=== PATIENT | male | born 1935 | race Caucasian/White ===

== ENCOUNTER → 2017-04-27 | Outpatient (CLI) | payer OTHER ==
[~2017-04-27] MED LIST: ACETAMINOPHEN500 MG PO; ASCORBIC ACID500 M3 GT; ASPIRIN81 M2 GT; ATROPINE 1100 DROP/5 PO; AUGMENTIN875 MG GT; BENEPROTEIN227 GM GT; BISAC-EVAC10 MG PR; DUONEB 2.5-0.5 M3 ML AEROSOL; ENDOCET 5-3251 EACH PO; GLIPIZIDE XL10 MG PO; GLIPIZIDE10 MG GT; GLUCAGEN1 MG IM; GLUCOPHAGE500 MG GT; GLUCOPHAGE500 MG PO; GUAIFENESI100 MG/5 M GT; HUMALOG100 UNIT/1 SC; LANSOPRAZOLE 3MG/ML GT; LANSOPRAZOLE30 MG PO; LEVEMIR FL100 UNIT/1 SC; LEVEMIR100 UNIT/2 SC; LEVOTHYROXINE50 MCG GT; LOSARTAN POTASS50 MG GT; METFORMIN HCL500 MG GT; METFORMIN HCL500 MG PO; METOCLOPRAM5 MG/5 ML GT; METRONIDAZOLE500 MG PO; MIRALAX17 GM GT; MOTRIN400 MG PO; NOVOLOG PE100 UNITS/ SC; NYSTATIN100000 UN1 PO; PRAVACHOL40 MG GT; PREDNISOLO15 MG/5 M1 GT; PREDNISONE1 MG/ML GT; PREVACID SOLUTA30 MG GT; PROTONIX IV40 MG IV; PROVENTIL,2.5 MG/0.5 AEROSOL; Prelone,Orapred PO; SAW PALMETTO450 MG PO; SENNA8.6 MG GT; SIMVASTATIN20 MG PO; SOLU-MEDRO40 MG/1 ML IV; TRANSDERM-SCO1 PATCH TD
== END | disposition home or self-care (01) ==
LOC: AMB 08:30
PROC: 0D20XUZ Change Feeding Device in Upper Intestinal Tract, External Approach (ICD-10-PCS; principal; 2017-04-27)
DX: K94.23 Gastrostomy malfunction (principal); I69.891 Dysphagia following other cerebrovascular disease; I10 Essential (primary) hypertension; E11.9 Type 2 diabetes mellitus without complications; E03.9 Hypothyroidism, unspecified; E78.5 Hyperlipidemia, unspecified; K21.9 Gastro-esophageal reflux disease without esophagitis; K59.00 Constipation, unspecified
CPT/HCPCS: 99212; B4087

== ENCOUNTER 2017-12-20 04:51 | Emergency (ER) | payer OTHER, MEDICARE ==
[~2017-12-20] VITALS: Ht 182.9 cm; Wt 100.0 kg
[2017-12-20 07:47] VITALS: BP 122/84
== END 2017-12-20 07:49 | disposition home or self-care (01) ==
LOC: EME → EDBD 04:51 → EME 07:49
PROC: 0D20XUZ Change Feeding Device in Upper Intestinal Tract, External Approach (ICD-10-PCS; principal; 2017-12-20)
DX: Z43.1 Encounter for attention to gastrostomy (principal); E11.9 Type 2 diabetes mellitus without complications; Z79.84 Long term (current) use of oral hypoglycemic drugs; J44.9 Chronic obstructive pulmonary disease, unspecified; I10 Essential (primary) hypertension; R56.9 Unspecified convulsions; E03.9 Hypothyroidism, unspecified
CPT/HCPCS: 74018; 99281; 99284

== ENCOUNTER 2018-01-30 18:49 | Inpatient (IN) | payer OTHER ==
[~2018-01-30] VITALS: Ht 182.9 cm; Wt 87.0 kg
[2018-01-30 20:15] LABS: BASOPHIL (%) 0.2 % (0-1); EOSINOPHIL (%) 0.1 % (0-5); HEMATOCRIT 39.8 % (38.0-50.0); HEMOGLOBIN 12.8 G/DL (12.5-16.6); IMMATURE GRANULOCYTE (%) 0.5 % (0.0-0.7); LYMPHOCYTE (%) 2.3 % (15-42); LYMPHOCYTE COUNT 0.3 K/uL (1.0-2.8); MCH 30.8 PG (29.0-34.0); MCHC 32.2 G/DL (30.0-36.0); MCV 95.9 FL (86-99); MONOCYTE (%) 1.3 % (3-12); MONOCYTE COUNT 0.2 K/uL (0-0.8); NEUTROPHIL (%) 95.6 % (45-76); NEUTROPHIL COUNT 11.5 K/uL (1.8-6.4); PLATELET COUNT 289 K/uL (156-360); RBC DIS.WIDTH-CV 14.8 % (11.8-14.6); RED BLOOD COUNT 4.15 M/uL (4.00-5.50); WHITE BLOOD COUNT 12.1 K/uL (4.1-10.2)
[2018-01-30 20:37] LABS: ALBUMIN 3.8 g/dL (3.2-4.8); CHLORIDE 96 mEq/L (99-109); POTASSIUM 5.3 mEq/L (3.7-5.4); SODIUM 134 mEq/L (136-147)
[2018-01-30 20:39] LABS: GLUCOSE 373 mg/dL (70-99); TOTAL PROTEIN 7.7 g/dL (6.4-8.3)
[2018-01-30 20:41] LABS: TOTAL BILIRUBIN 0.9 mg/dL (0.0-1.0)
[2018-01-30 20:42] LABS: TROP-I INTERPRETATION NEGATIVE; TROPONIN-I 0.01 ng/mL (0.0-0.30)
[2018-01-30 20:43] LABS: ALKALINE PHOSPHATASE 144 IU/L (3-129); CREATININE 1.5 mg/dL (0.6-1.3); GFR ESTIMATE (CALCULATED) 48 mL/min/ (58.99-99999)
[2018-01-30 20:44] LABS: UREA NITROGEN (BUN) 45 mg/dL (9-23)
[2018-01-30 20:45] LABS: AST (GOT) 22 IU/L (2-34)
[2018-01-30 20:46] LABS: ALT (GPT) 19 IU/L (3-49)
[2018-01-30 22:02] LABS: BASE EXCESS 1.9 mEq/L (-3 to +3); BICARBONATE 26.6 mEq/L (22-26); CARBOXY HGB 3.3 % (0-5); COMMENTS - BLOOD GASES C+A+; DEVICE NC; METHEMOGLOBIN 1.1 % (0-1.5); O2 FLOW 4 L/MIN; PCO2 41 mm Hg (35-45); PO2 57 mm Hg (80-100); SITE LR; TOTAL RESP RATE 22 resp/min; pH 7.42 (7.35-7.45)
[2018-01-30] MEDS ORDERED: GLIPIZIDE5 MG PO (22:37)
[2018-01-31] MEDS ORDERED: NORVASC5 MG GT (01:36)
[2018-01-31] MEDS ORDERED: GLUCERNA 1.5 C237 ML PO (01:36)
[2018-01-31] MEDS ORDERED: PREDNISONE20 MG GT (01:40)
[2018-01-31] MEDS ORDERED: AMOX TR-K CLV1 EAC3 GT (01:47)
[2018-01-31] MEDS ORDERED: METFORMIN HCL500 MG GT (01:51)
[2018-01-31] MEDS ORDERED: NUTRISOURCE FI1 EACH GT (01:53)
[2018-01-31] MEDS ORDERED: ZANTAC15 MG/ML GT (01:54)
[2018-01-31] MEDS ORDERED: DUONEB 2.5-0.5 M3 ML AEROSOL ×2 (01:58→01:59)
[2018-01-31] MEDS ORDERED: PROMETHAZINE12.5 M1 GT (02:01)
[2018-01-31] MEDS ORDERED: KENALOG,ARISTOC80 GM TP (02:02)
[2018-01-31] MEDS ORDERED: TYLENOL REGULA325 MG GT (02:03)
[2018-01-31 02:22] LABS: BASE EXCESS 1.7 mEq/L (-3 to +3); BICARBONATE 26.6 mEq/L (22-26); CARBOXY HGB 2.7 % (0-5); COMMENTS - BLOOD GASES C+A+; DEVICE HHFNC; FI02 50 %; METHEMOGLOBIN 1.2 % (0-1.5); O2 FLOW 40 L/MIN; PCO2 42 mm Hg (35-45); PO2 86 mm Hg (80-100); SITE LR; TOTAL RESP RATE 30 resp/min; pH 7.41 (7.35-7.45)
[2018-01-31 03:55] LABS: APPEARANCE CLEAR ((CLEAR)); BILIRUBIN NEGATIVE; BLOOD SMALL; COLOR YELLOW ((YELLOW)); GLUCOSE (STRIP) >=500; KETONES NEGATIVE; LEUKOCYTES NEGATIVE; NITRITE NEGATIVE; PROTEIN (STRIP) 30; SPECIFIC GRAVITY 1.021 (1.000-1.030)
[2018-01-31 04:08] LABS: BACTERIA NONE SEEN /HPF; EPITHELIAL CELLS NONE SEEN /HPF; MUCUS TRACE /LPF; RED BLOOD CELLS 20-30 /HPF (0-5); UCUL ADDED? NO; WHITE BLOOD CELLS 0-5 /HPF (0-5)
[2018-01-31 10:38] LABS: BASOPHIL (%) 0 % (0-1); EOSINOPHIL (%) 0 % (0-5); HEMATOCRIT 34.6 % (38.0-50.0); HEMOGLOBIN 11.2 G/DL (12.5-16.6); IMMATURE GRANULOCYTE (%) 0.5 % (0.0-0.7); LYMPHOCYTE (%) 3.1 % (15-42); LYMPHOCYTE COUNT 0.3 K/uL (1.0-2.8); MCH 30.8 PG (29.0-34.0); MCHC 32.4 G/DL (30.0-36.0); MCV 95.1 FL (86-99); MONOCYTE (%) 1.2 % (3-12); MONOCYTE COUNT 0.1 K/uL (0-0.8); NEUTROPHIL (%) 95.2 % (45-76); NEUTROPHIL COUNT 9.2 K/uL (1.8-6.4); PLATELET COUNT 236 K/uL (156-360); RBC DIS.WIDTH-CV 14.6 % (11.8-14.6); RBC DIS.WIDTH-SD 50.5 % (39-53); RED BLOOD COUNT 3.64 M/uL (4.00-5.50); WHITE BLOOD COUNT 9.7 K/uL (4.1-10.2)
[2018-01-31 10:49] LABS: CHLORIDE 105 mEq/L (99-109); POTASSIUM 4.7 mEq/L (3.7-5.4); SODIUM 140 mEq/L (136-147)
[2018-01-31 10:50] LABS: GLUCOSE 294 mg/dL (70-99)
[2018-01-31 10:54] LABS: CREATININE 1.1 mg/dL (0.6-1.3); GFR ESTIMATE (CALCULATED) > 59 mL/min/ (58.99-99999)
[2018-01-31 10:55] LABS: UREA NITROGEN (BUN) 36 mg/dL (9-23)
[2018-01-31 14:39] VITALS: BP 102/67
[2018-01-31 14:46] VITALS: BP 102/67
[2018-01-31 19:37] VITALS: BP 104/63
[2018-02-01] VITALS (13 sets, daily range): BP systolic 104–124; BP diastolic 53–71
[2018-02-01 08:24] LABS: BASE EXCESS 1.2 mEq/L (-3 to +3); CARBOXY HGB 2.8 % (0-5); COMMENTS - BLOOD GASES A+C+; DEVICE HHFLNC; FI02 60 %; METHEMOGLOBIN 1.9 % (0-1.5); O2 FLOW 40 L/MIN; PCO2 36 mm Hg (35-45); PO2 48 mm Hg (80-100); SITE LR; TOTAL RESP RATE 25 resp/min; pH 7.45 (7.35-7.45)
[2018-02-01 09:21] LABS: HEMATOCRIT 36.9 % (38.0-50.0); HEMOGLOBIN 11.8 G/DL (12.5-16.6); MCH 30.9 PG (29.0-34.0); MCV 96.6 FL (86-99); PLATELET COUNT 274 K/uL (156-360); RBC DIS.WIDTH-CV 14.8 % (11.8-14.6); RBC DIS.WIDTH-SD 52.1 % (39-53); RED BLOOD COUNT 3.82 M/uL (4.00-5.50); WHITE BLOOD COUNT 14.3 K/uL (4.1-10.2)
[2018-02-01 09:48] LABS: CHLORIDE 106 MEQ/L (99-109); CREATININE 1.1 MG/DL (0.6-1.3); GFR ESTIMATE (CALCULATED) > 59 mL/min/ (58.99-99999); GLUCOSE 360 mg/dL (70-99); POTASSIUM 4.4 MEQ/L (3.7-5.4); SODIUM 140 MEQ/L (136-147); UREA NITROGEN (BUN) 39 mg/dL (9-23)
[2018-02-02] VITALS (17 sets, daily range): BP systolic 93–155; BP diastolic 44–81
[2018-02-02 04:36] LABS: BASOPHIL (%) 0.1 % (0-1); EOSINOPHIL (%) 0 % (0-5); HEMOGLOBIN 12.1 G/DL (12.5-16.6); IMMATURE GRANULOCYTE (%) 0.5 % (0.0-0.7); LYMPHOCYTE (%) 2.5 % (15-42); LYMPHOCYTE COUNT 0.3 K/uL (1.0-2.8); MCH 30.7 PG (29.0-34.0); MCHC 31.8 G/DL (30.0-36.0); MCV 96.4 FL (86-99); MONOCYTE (%) 2.1 % (3-12); MONOCYTE COUNT 0.3 K/uL (0-0.8); NEUTROPHIL (%) 94.8 % (45-76); NEUTROPHIL COUNT 12.3 K/uL (1.8-6.4); PLATELET COUNT 259 K/uL (156-360); RBC DIS.WIDTH-CV 14.6 % (11.8-14.6); RBC DIS.WIDTH-SD 51.9 % (39-53); RED BLOOD COUNT 3.94 M/uL (4.00-5.50)
[2018-02-02 04:44] LABS: CHLORIDE 108 mEq/L (99-109); POTASSIUM 4.4 mEq/L (3.7-5.4); SODIUM 144 mEq/L (136-147)
[2018-02-02 04:46] LABS: GLUCOSE 304 mg/dL (70-99)
[2018-02-02 04:50] LABS: CREATININE 1.1 mg/dL (0.6-1.3); GFR ESTIMATE (CALCULATED) > 59 mL/min/ (58.99-99999)
[2018-02-02 04:51] LABS: UREA NITROGEN (BUN) 40 mg/dL (9-23)
[2018-02-03] VITALS (12 sets, daily range): BP systolic 97–138; BP diastolic 60–82
[2018-02-03 05:05] LABS: BASOPHIL (%) 0.1 % (0-1); EOSINOPHIL (%) 0 % (0-5); HEMATOCRIT 37.7 % (38.0-50.0); HEMOGLOBIN 12.1 G/DL (12.5-16.6); IMMATURE GRANULOCYTE (%) 0.6 % (0.0-0.7); LYMPHOCYTE (%) 1.8 % (15-42); LYMPHOCYTE COUNT 0.3 K/uL (1.0-2.8); MCH 30.6 PG (29.0-34.0); MCHC 32.1 G/DL (30.0-36.0); MCV 95.2 FL (86-99); MONOCYTE (%) 2.8 % (3-12); MONOCYTE COUNT 0.4 K/uL (0-0.8); NEUTROPHIL (%) 94.7 % (45-76); NEUTROPHIL COUNT 13.3 K/uL (1.8-6.4); PLATELET COUNT 253 K/uL (156-360); RBC DIS.WIDTH-CV 14.6 % (11.8-14.6); RBC DIS.WIDTH-SD 50.9 % (39-53); RED BLOOD COUNT 3.96 M/uL (4.00-5.50); WHITE BLOOD COUNT 14.1 K/uL (4.1-10.2)
[2018-02-03 05:23] LABS: CHLORIDE 111 mEq/L (99-109); POTASSIUM 3.8 mEq/L (3.7-5.4); SODIUM 148 mEq/L (136-147)
[2018-02-03 05:25] LABS: GLUCOSE 275 mg/dL (70-99)
[2018-02-03 05:29] LABS: GFR ESTIMATE (CALCULATED) > 59 mL/min/ (58.99-99999)
[2018-02-03 05:30] LABS: UREA NITROGEN (BUN) 35 mg/dL (9-23)
[2018-02-04] VITALS (17 sets, daily range): BP systolic 117–147; BP diastolic 63–83
[2018-02-04 06:57] LABS: BASOPHIL (%) 0.1 % (0-1); EOSINOPHIL (%) 0 % (0-5); HEMATOCRIT 36.6 % (38.0-50.0); HEMOGLOBIN 11.8 G/DL (12.5-16.6); IMMATURE GRANULOCYTE (%) 0.6 % (0.0-0.7); LYMPHOCYTE (%) 1.7 % (15-42); LYMPHOCYTE COUNT 0.2 K/uL (1.0-2.8); MCHC 32.2 G/DL (30.0-36.0); MCV 96.1 FL (86-99); MONOCYTE (%) 3.1 % (3-12); MONOCYTE COUNT 0.4 K/uL (0-0.8); NEUTROPHIL (%) 94.5 % (45-76); NRBC (%) 0.2 /100 WBC (0-0); PLATELET COUNT 252 K/uL (156-360); RBC DIS.WIDTH-CV 14.6 % (11.8-14.6); RBC DIS.WIDTH-SD 51.1 % (39-53); RED BLOOD COUNT 3.81 M/uL (4.00-5.50); WHITE BLOOD COUNT 12.7 K/uL (4.1-10.2)
[2018-02-04 07:39] LABS: CHLORIDE 110 MEQ/L (99-109); CREATININE 0.9 MG/DL (0.6-1.3); GFR ESTIMATE (CALCULATED) > 59 mL/min/ (58.99-99999); POTASSIUM 3.6 MEQ/L (3.7-5.4); SODIUM 149 MEQ/L (136-147); UREA NITROGEN (BUN) 35 mg/dL (9-23)
[2018-02-04 07:43] LABS: GLUCOSE 127 mg/dL (70-99)
[2018-02-05] VITALS (19 sets, daily range): BP systolic 84–154; BP diastolic 50–85
[2018-02-05 06:20] LABS: BASOPHIL (%) 0.1 % (0-1); EOSINOPHIL (%) 0 % (0-5); HEMATOCRIT 36.7 % (38.0-50.0); HEMOGLOBIN 11.5 G/DL (12.5-16.6); IMMATURE GRANULOCYTE (%) 0.8 % (0.0-0.7); LYMPHOCYTE (%) 1.3 % (15-42); LYMPHOCYTE COUNT 0.2 K/uL (1.0-2.8); MCH 30.1 PG (29.0-34.0); MCHC 31.3 G/DL (30.0-36.0); MCV 96.1 FL (86-99); MONOCYTE (%) 1.9 % (3-12); MONOCYTE COUNT 0.3 K/uL (0-0.8); NEUTROPHIL (%) 95.9 % (45-76); NEUTROPHIL COUNT 12.8 K/uL (1.8-6.4); NRBC (%) 0.1 /100 WBC (0-0); PLATELET COUNT 235 K/uL (156-360); RBC DIS.WIDTH-CV 14.9 % (11.8-14.6); RBC DIS.WIDTH-SD 52.1 % (39-53); RED BLOOD COUNT 3.82 M/uL (4.00-5.50); WHITE BLOOD COUNT 13.4 K/uL (4.1-10.2)
[2018-02-05 07:01] LABS: CHLORIDE 108 MEQ/L (99-109); CREATININE 0.8 MG/DL (0.6-1.3); GFR ESTIMATE (CALCULATED) > 59 mL/min/ (58.99-99999); POTASSIUM 4.1 MEQ/L (3.7-5.4); SODIUM 147 MEQ/L (136-147); UREA NITROGEN (BUN) 35 mg/dL (9-23)
[2018-02-05 07:02] LABS: GLUCOSE 216 mg/dL (70-99)
[2018-02-06] VITALS (23 sets, daily range): BP systolic 120–151; BP diastolic 65–86
[2018-02-06 04:57] LABS: BASOPHIL (%) 0.1 % (0-1); EOSINOPHIL (%) 0 % (0-5); HEMATOCRIT 36.6 % (38.0-50.0); HEMOGLOBIN 11.8 G/DL (12.5-16.6); LYMPHOCYTE (%) 2.1 % (15-42); LYMPHOCYTE COUNT 0.3 K/uL (1.0-2.8); MCH 30.6 PG (29.0-34.0); MCHC 32.2 G/DL (30.0-36.0); MCV 94.8 FL (86-99); MONOCYTE (%) 2.1 % (3-12); MONOCYTE COUNT 0.3 K/uL (0-0.8); NEUTROPHIL (%) 94.7 % (45-76); NEUTROPHIL COUNT 11.9 K/uL (1.8-6.4); PLATELET COUNT 236 K/uL (156-360); RBC DIS.WIDTH-CV 14.6 % (11.8-14.6); RBC DIS.WIDTH-SD 50.7 % (39-53); RED BLOOD COUNT 3.86 M/uL (4.00-5.50); WHITE BLOOD COUNT 12.6 K/uL (4.1-10.2)
[2018-02-06 05:22] LABS: CHLORIDE 107 mEq/L (99-109); POTASSIUM 4.1 mEq/L (3.7-5.4); SODIUM 145 mEq/L (136-147)
[2018-02-06 05:23] LABS: GLUCOSE 201 mg/dL (70-99)
[2018-02-06 05:27] LABS: CREATININE 0.8 mg/dL (0.6-1.3); GFR ESTIMATE (CALCULATED) > 59 mL/min/ (58.99-99999)
[2018-02-06 05:28] LABS: UREA NITROGEN (BUN) 33 mg/dL (9-23)
[2018-02-06 20:11] LABS: HIGH-SENS C-REACTIVE PROTEIN 0.42 MG/DL (0.02-0.20)
[2018-02-07] VITALS (8 sets, daily range): BP systolic 128–161; BP diastolic 74–88
[2018-02-07 05:41] LABS: HIGH-SENS C-REACTIVE PROTEIN 0.33 MG/DL (0.02-0.20)
[2018-02-08 04:10] VITALS: BP 132/76
[2018-02-08 06:10] LABS: HEMATOCRIT 38.8 % (38.0-50.0); HEMOGLOBIN 12.3 G/DL (12.5-16.6); MCH 30.3 PG (29.0-34.0); MCHC 31.7 G/DL (30.0-36.0); MCV 95.6 FL (86-99); NRBC (%) 0.3 /100 WBC (0-0); PLATELET COUNT 247 K/uL (156-360); RBC DIS.WIDTH-CV 14.7 % (11.8-14.6); RBC DIS.WIDTH-SD 51.3 % (39-53); RED BLOOD COUNT 4.06 M/uL (4.00-5.50); WHITE BLOOD COUNT 14.2 K/uL (4.1-10.2)
[2018-02-08 06:42] LABS: CHLORIDE 104 MEQ/L (99-109); CREATININE 0.7 MG/DL (0.6-1.3); GFR ESTIMATE (CALCULATED) > 59 mL/min/ (58.99-99999); GLUCOSE 173 mg/dL (70-99); POTASSIUM 4.2 MEQ/L (3.7-5.4); SODIUM 142 MEQ/L (136-147); UREA NITROGEN (BUN) 35 mg/dL (9-23)
[2018-02-08 08:54] VITALS: BP 167/86
[2018-02-08 17:12] VITALS: BP 140/78
[2018-02-08 20:00] VITALS: BP 135/72
[2018-02-09 00:20] VITALS: BP 136/76
[2018-02-09 04:20] VITALS: BP 138/81
[2018-02-09 05:12] LABS: HEMOGLOBIN 13.5 G/DL (12.5-16.6); MCHC 32.9 G/DL (30.0-36.0); NRBC (%) 0.3 /100 WBC (0-0); PLATELET COUNT 338 K/uL (156-360); RBC DIS.WIDTH-CV 14.6 % (11.8-14.6); RBC DIS.WIDTH-SD 50.2 % (39-53); RED BLOOD COUNT 4.36 M/uL (4.00-5.50); WHITE BLOOD COUNT 27.7 K/uL (4.1-10.2)
[2018-02-09 05:15] LABS: CHLORIDE 104 mEq/L (99-109); POTASSIUM 4.2 mEq/L (3.7-5.4); SODIUM 142 mEq/L (136-147)
[2018-02-09 05:20] LABS: CREATININE 0.7 mg/dL (0.6-1.3); GFR ESTIMATE (CALCULATED) > 59 mL/min/ (58.99-99999)
[2018-02-09 05:21] LABS: UREA NITROGEN (BUN) 32 mg/dL (9-23)
[2018-02-09 05:22] LABS: GLUCOSE 50 mg/dL (70-99)
[2018-02-09 08:00] VITALS: BP 136/80
[2018-02-09 12:46] VITALS: BP 130/77
[2018-02-09 16:00] VITALS: BP 136/77
[2018-02-09 20:23] VITALS: BP 113/79
[2018-02-10 00:48] VITALS: BP 110/80
[2018-02-10 04:25] VITALS: BP 116/80
[2018-02-10 05:50] LABS: HEMATOCRIT 41.5 % (38.0-50.0); HEMOGLOBIN 13.3 G/DL (12.5-16.6); MCV 93.7 FL (86-99); NRBC (%) 0.2 /100 WBC (0-0); PLATELET COUNT 248 K/uL (156-360); RBC DIS.WIDTH-CV 14.6 % (11.8-14.6); RBC DIS.WIDTH-SD 49.9 % (39-53); RED BLOOD COUNT 4.43 M/uL (4.00-5.50); WHITE BLOOD COUNT 16.7 K/uL (4.1-10.2)
[2018-02-10 07:13] LABS: CHLORIDE 100 MEQ/L (99-109); CREATININE 0.8 MG/DL (0.6-1.3); GFR ESTIMATE (CALCULATED) > 59 mL/min/ (58.99-99999); GLUCOSE 55 mg/dL (70-99); POTASSIUM 4.6 MEQ/L (3.7-5.4); SODIUM 142 MEQ/L (136-147); UREA NITROGEN (BUN) 33 mg/dL (9-23)
[2018-02-10 09:09] VITALS: BP 156/64
[2018-02-10 13:21] VITALS: BP 134/71
[2018-02-10 20:00] VITALS: BP 126/71
[2018-02-10 23:54] VITALS: BP 121/59
[2018-02-11 04:00] VITALS: BP 136/67
[2018-02-11 05:51] LABS: HEMATOCRIT 41.7 % (38.0-50.0); HEMOGLOBIN 13.4 G/DL (12.5-16.6); MCH 30.5 PG (29.0-34.0); MCHC 32.1 G/DL (30.0-36.0); MCV 94.8 FL (86-99); PLATELET COUNT 257 K/uL (156-360); RBC DIS.WIDTH-CV 14.9 % (11.8-14.6); RBC DIS.WIDTH-SD 51.1 % (39-53); WHITE BLOOD COUNT 18.4 K/uL (4.1-10.2)
[2018-02-11 06:22] LABS: CHLORIDE 98 MEQ/L (99-109); CREATININE 0.9 MG/DL (0.6-1.3); GFR ESTIMATE (CALCULATED) > 59 mL/min/ (58.99-99999); GLUCOSE 68 mg/dL (70-99); POTASSIUM 5.3 MEQ/L (3.7-5.4); SODIUM 140 MEQ/L (136-147); UREA NITROGEN (BUN) 37 mg/dL (9-23)
[2018-02-11 07:56] VITALS: BP 123/69
[2018-02-11 11:21] VITALS: BP 113/70
[2018-02-11 14:52] VITALS: BP 118/56
[2018-02-11 19:50] VITALS: BP 123/75
[2018-02-11 23:55] VITALS: BP 102/56
[2018-02-12 04:15] VITALS: BP 110/58
[2018-02-12 06:01] LABS: HEMATOCRIT 42.1 % (38.0-50.0); HEMOGLOBIN 13.8 G/DL (12.5-16.6); MCH 30.9 PG (29.0-34.0); MCHC 32.8 G/DL (30.0-36.0); MCV 94.4 FL (86-99); NRBC (%) 0.1 /100 WBC (0-0); PLATELET COUNT 234 K/uL (156-360); RBC DIS.WIDTH-SD 50.7 % (39-53); RED BLOOD COUNT 4.46 M/uL (4.00-5.50); WHITE BLOOD COUNT 20.4 K/uL (4.1-10.2)
[2018-02-12 06:26] LABS: CHLORIDE 98 MEQ/L (99-109); CREATININE 0.9 MG/DL (0.6-1.3); GFR ESTIMATE (CALCULATED) > 59 mL/min/ (58.99-99999); GLUCOSE 55 mg/dL (70-99); POTASSIUM 4.9 MEQ/L (3.7-5.4); SODIUM 137 MEQ/L (136-147); UREA NITROGEN (BUN) 34 mg/dL (9-23)
[2018-02-12 09:45] VITALS: BP 133/64
[2018-02-12 12:16] VITALS: BP 118/72
[2018-02-12 14:30] VITALS: BP 105/55
[2018-02-12 19:31] VITALS: BP 116/61
[2018-02-12 23:41] VITALS: BP 131/61
[2018-02-12 23:48] LABS: BASE EXCESS 9.9 mEq/L (-3 to +3); CARBOXY HGB 3.2 % (0-5); METHEMOGLOBIN 1.7 % (0-1.5); PO2 51 mm Hg (80-100)
[2018-02-12 23:49] LABS: BICARBONATE 34.3 mEq/L (22-26); COMMENTS - BLOOD GASES C+; DEVICE HHFNC; FI02 100 %; O2 FLOW 30 L/MIN; PCO2 44 mm Hg (35-45); SITE LR; TOTAL RESP RATE 45 resp/min
[2018-02-13 01:27] VITALS: BP 138/73
[2018-02-13 02:15] VITALS: BP 120/57
[2018-02-13 08:30] VITALS: BP 114/59
[2018-02-13 12:03] VITALS: BP 105/64
[2018-02-13 16:31] VITALS: BP 114/64
[2018-02-13 20:21] VITALS: BP 100/55
[2018-02-14 00:30] VITALS: BP 128/77
[2018-02-14 05:18] VITALS: BP 118/67
[2018-02-14 05:58] LABS: BASOPHIL (%) 0.1 % (0-1); EOSINOPHIL (%) 0.3 % (0-5); EOSINOPHIL COUNT 0.1 K/uL (0-0.3); HEMATOCRIT 34.8 % (38.0-50.0); IMMATURE GRANULOCYTE (%) 0.6 % (0.0-0.7); LYMPHOCYTE (%) 2.8 % (15-42); LYMPHOCYTE COUNT 0.6 K/uL (1.0-2.8); MCH 30.2 PG (29.0-34.0); MCHC 32.5 G/DL (30.0-36.0); MONOCYTE (%) 3.2 % (3-12); MONOCYTE COUNT 0.6 K/uL (0-0.8); NEUTROPHIL COUNT 18.5 K/uL (1.8-6.4); PLATELET COUNT 180 K/uL (156-360); RBC DIS.WIDTH-CV 15.2 % (11.8-14.6); RBC DIS.WIDTH-SD 49.9 % (39-53); RED BLOOD COUNT 3.74 M/uL (4.00-5.50); WHITE BLOOD COUNT 19.9 K/uL (4.1-10.2)
[2018-02-14 06:07] LABS: HEMOGLOBIN 11.3 G/DL (12.5-16.6)
[2018-02-14 06:33] LABS: ALBUMIN 2.4 G/DL (3.2-4.8); ALKALINE PHOSPHATASE 110 IU/L (3-129); ALT (GPT) 33 IU/L (3-49); AST (GOT) 29 IU/L (2-34); CHLORIDE 93 MEQ/L (99-109); CREATININE 1.1 MG/DL (0.6-1.3); GFR ESTIMATE (CALCULATED) > 59 mL/min/ (58.99-99999); POTASSIUM 4.9 MEQ/L (3.7-5.4); SODIUM 131 MEQ/L (136-147); TOTAL BILIRUBIN 0.8 MG/DL (0.0-1.0); TOTAL PROTEIN 4.8 G/DL (6.4-8.3); UREA NITROGEN (BUN) 45 mg/dL (9-23)
[2018-02-14 06:37] LABS: GLUCOSE 244 mg/dL (70-99)
[2018-02-14 19:05] VITALS: BP 109/65
[2018-02-14 23:44] VITALS: BP 117/61
[2018-02-15 03:19] VITALS: BP 108/63
[2018-02-15 08:04] VITALS: BP 121/54
[2018-02-15 11:25] VITALS: BP 111/72
[2018-02-15 15:23] VITALS: BP 114/65
[2018-02-15 19:27] VITALS: BP 105/55
[2018-02-15 23:50] VITALS: BP 101/57
[2018-02-16 04:30] VITALS: BP 106/54
[2018-02-16 07:53] LABS: BASE EXCESS 14.2 mEq/L (-3 to +3); BICARBONATE 39.1 mEq/L (22-26); CARBOXY HGB 2.8 % (0-5); COMMENTS - BLOOD GASES A+C+; DEVICE HHFNC + NRB; FI02 100 %; METHEMOGLOBIN 1.9 % (0-1.5); O2 FLOW 50 L/MIN; PCO2 49 mm Hg (35-45); PO2 46 mm Hg (80-100); SITE LR
[2018-02-16 07:54] LABS: TOTAL RESP RATE 46 resp/min; pH 7.51 (7.35-7.45)
[2018-02-16 08:26] LABS: HEMATOCRIT 38.1 % (38.0-50.0); HEMOGLOBIN 12.2 G/DL (12.5-16.6); MCV 93.8 FL (86-99); PLATELET COUNT 214 K/uL (156-360); RBC DIS.WIDTH-CV 15.2 % (11.8-14.6); RBC DIS.WIDTH-SD 51.3 % (39-53); RED BLOOD COUNT 4.06 M/uL (4.00-5.50); WHITE BLOOD COUNT 17.9 K/uL (4.1-10.2)
[2018-02-16 08:44] LABS: TROP-I INTERPRETATION NEGATIVE; TROPONIN-I 0.05 ng/mL (0.0-0.30)
[2018-02-16 09:04] LABS: ALBUMIN 2.7 G/DL (3.2-4.8); ALT (GPT) 32 IU/L (3-49); AST (GOT) 25 IU/L (2-34); CHLORIDE 90 MEQ/L (99-109); CREATININE 1.1 MG/DL (0.6-1.3); GFR ESTIMATE (CALCULATED) > 59 mL/min/ (58.99-99999); GLUCOSE 325 mg/dL (70-99); POTASSIUM 5.1 MEQ/L (3.7-5.4); UREA NITROGEN (BUN) 46 mg/dL (9-23)
[2018-02-16 09:05] LABS: ALKALINE PHOSPHATASE 195 IU/L (3-129); SODIUM 138 MEQ/L (136-147); TOTAL PROTEIN 5.7 G/DL (6.4-8.3)
[2018-02-16 11:30] VITALS: BP 99/59
[2018-02-16 12:00] VITALS: BP 114/63
[2018-02-16 20:39] VITALS: BP 111/61
[2018-02-16 23:41] VITALS: BP 121/55
[2018-02-17 04:31] VITALS: BP 108/79
[2018-02-17 07:32] VITALS: BP 112/64
[2018-02-17 11:09] VITALS: BP 112/56
[2018-02-17 16:53] VITALS: BP 103/56
[2018-02-17 20:50] VITALS: BP 97/59
[2018-02-17 23:38] VITALS: BP 114/66
[2018-02-18 00:03] VITALS: BP 141/62
== END 2018-02-18 05:30 | DRG 196 ==
LOC: EME 18:49 → EDOF 01-31 02:36 → 4WEST 01-31 02:36 → 4EAST 01-31 02:36 → ENRESERV 01-31 02:38 → 4EAST 01-31 14:22 → ENRESERV 02-01 08:45 → 4WEST 02-01 09:28 → CANRESERV 02-03 20:19 → ENRESERV 02-03 20:19 → 4WEST 02-04 17:00 → ENRESERV 02-07 00:06 → 4EAST 02-07 01:05 → ENRESERV 02-12 08:54 → 5EAST 02-12 14:34 → ENRESERV 02-13 01:40 → 4EAST 02-13 02:10 → ENRESERV 02-17 19:33 → 5EAST 02-18 00:08
PROVIDERS: Emergency Medicine; Hospitalist; Internal Medicine; Internal Medicine Critical Care Medicine; Internal Medicine Pulmonary Disease
PROC: 5A0935Z Assistance with Respiratory Ventilation, Less than 24 Consecutive Hours (ICD-10-PCS; principal; 2018-01-30)
PROC: 0D20XUZ Change Feeding Device in Upper Intestinal Tract, External Approach (ICD-10-PCS; 2018-02-01)
DX: J84.112 Idiopathic pulmonary fibrosis (principal); J96.01 Acute respiratory failure with hypoxia; J44.1 Chronic obstructive pulmonary disease with (acute) exacerbation; J69.0 Pneumonitis due to inhalation of food and vomit; Y95 Nosocomial condition; E11.649 Type 2 diabetes mellitus with hypoglycemia without coma; T38.0X5A Adverse effect of glucocorticoids and synthetic analogues, initial encounter; E87.2 Acidosis; N40.1 Benign prostatic hyperplasia with lower urinary tract symptoms; R33.8 Other retention of urine; Z93.1 Gastrostomy status; G62.9 Polyneuropathy, unspecified; R13.10 Dysphagia, unspecified; G12.29 Other motor neuron disease; Z66 Do not resuscitate; Z51.5 Encounter for palliative care; I10 Essential (primary) hypertension; E78.5 Hyperlipidemia, unspecified; E03.9 Hypothyroidism, unspecified; G47.33 Obstructive sleep apnea (adult) (pediatric); F41.9 Anxiety disorder, unspecified; K59.00 Constipation, unspecified; I73.89 Other specified peripheral vascular diseases; E66.9 Obesity, unspecified; Z68.32 Body mass index [BMI] 32.0-32.9, adult; Z86.79 Personal history of other diseases of the circulatory system; Z87.11 Personal history of peptic ulcer disease; Z91.19 Patient's noncompliance with other medical treatment and regimen; Z79.82 Long term (current) use of aspirin; Z79.84 Long term (current) use of oral hypoglycemic drugs; Z83.3 Family history of diabetes mellitus; Z82.49 Family history of ischemic heart disease and other diseases of the circulatory system
CPT/HCPCS: 36600; 71045; 71250; 78580; 80048; 80053; 80202; 81003; 82436; 82803; 82948; 83520 90; 83605; 83880; 84145 90; 84484; 85025; 85027; 86141; 87040; 87070; 87205; 87449; 87502; 87641; 93005; 93321; 93325; 93970; 94002; 94003; 94010; 94640; 94640 76; 94760; 94799; 97530 GO; 97530 GP; 99202; 99281; 99285; A9540; C1753; C8923; J0456; J1100; J1644; J1815; J1940; J2060; J2270; J2543; J2920; J2930; J3010; J3370; J3475; J7030; J7040; J7050; J7512; J7644